=== PATIENT | female | born 2000 | race Caucasian/White ===

== ENCOUNTER 2021-04-18 06:56 | Emergency (ER) | payer BC ==
[2021-04-18] MEDS ORDERED: levETIRAcetam in NS 100 ML ONE (07:57)
== END 2021-04-18 08:57 | disposition home or self-care (01) ==
LOC: CSHERS 06:56
DX: S01.512A Laceration without foreign body of oral cavity, initial encounter (principal); R56.9 Unspecified convulsions
CPT/HCPCS: 36416; 96365; J1953